=== PATIENT | female | born 1990 | race American Indian/Alaskan Native ===

== ENCOUNTER 2021-03-22 12:05 | Emergency (ER) | payer MEDICAID ==
[2021-03-22 14:40] VITALS: BP 121/66
--- NOTE | 2021-03-22 14:50 | Event Note ---
ED Screening Note Date of service: 03/22/21 Time: 14:48 ED Screening Note: 30-year-old female patient presents to the emergency department with complaints of dizziness for 1 month. Patient states she was evaluated by her primary care provider for this issue. She was diagnosed with anxiety and prescribed Venlafaxine. She has not taken the medication that was prescribed to her. Describes the dizziness as "feeling disoriented and off balance." Patient called her primary care provider this morning, who sent her to the emergency department. No recent fall, trauma, or injury. General: Awake, appropriately interactive, no acute distress. Neck: Supple. Full range of motion intact. Cardiovascular: Normal peripheral perfusion. Pulmonary: No respiratory distress. Patient is speaking normally without use of accessory muscles. Skin: No apparent rashes or lesions. Neurological: No facial asymmetry. Speech is clear. Follows commands. Patient is alert and oriented to person, place, time, and situation. Ambulatory without assistance. Musculoskeletal: Moves all four extremities spontaneously with normal range of motion. Psych: Cooperative. Appropriate mood and affect. EKG ordered. Serum test is pending. I have greeted and performed a focused rapid initial assessment of this patient. A comprehensive ED assessment and evaluation of the patient, analysis of all test results, and completion of the medical decision-making process will be conducted by additional ED providers. This initial assessment/diagnostic orders/clinical plan/treatment(s) is/are subject to change based on patients health status, clinical progression and re-assessment. Further treatment and wo rkup at subsequent clinical provider's discretion. Patient/guardian urged not to elope from the ED as their condition may be serious if not clinically assessed and managed.
--- NOTE | 2021-03-22 16:56 | Emergency Department Report ---
ED General Adult HPI - General Chief complaint: Dizziness Stated complaint: DIZZINESS Time Seen by Provider: 03/22/21 16:51 Source: patient Mode of arrival: Ambulatory Limitations: No Limitations - History of Present Illness Initial comments: 30-year-old female patient presents to the emergency department with complaints of dizziness for 1 month. Patient states she was evaluated by her primary care provider for this issue. She was diagnosed with anxiety and prescribed Venlafaxine. She has not taken the medication that was prescribed to her. Describes the dizziness as "feeling disoriented and off balance." Patient called her primary care provider this morning, who sent her to the emergency department. No recent fall, trauma, or injury. No current steroid or antibiotic use. Denies fever, chills, headache, vision changes, chest pain, shortness of breath, palpitations, syncope, seizure, paresthesias, numbness, weakness, vomiting, diarrhea, abnormal bleeding/bruising. Denies all other complaints at this time. - Related Data Allergies Allergy/AdvReac Type Severity Reaction Status Date / Time No Known Allergies Allergy Unverified 03/22/21 13:01 ED Review of Systems ROS: Stated complaint: DIZZINESS Other details as noted in HPI Other: GENERAL: Negative for fever, chills, weight change, anorexia, fatigue. ENT: Negative for ear pain, difficulty hearing, sore throat, nasal congestion, epistaxis. CARDIOVASCULAR: Negative for chest pain, palpitations, lower extremity swelling. PULMONARY: Negative for cough, dyspnea, wheezing, orthopnea, cyanosis. GASTROINTESTINAL: Negative for abdominal pain, nausea, vomiting, diarrhea, constipation. MUSCULOSKELETAL: Negative for joint pain, joint swelling, myalgias, back pain, neck pain. NEUROLOGICAL: Positive for dizziness. INTEGUMENTARY: Negative for erythema, rash, diaphoresis, laceration, ecchymosis. HEMATOLOGICAL: Negative for hemoptysis, hematemesis, hematochezia, hematuria. PSYCHIATRIC: Negative for hallucinations, suicidal ideation, homicidal ideation, anxiety, depression. ED Past Medical Hx - Past Medical History Previous Medical History?: No - Surgical History Past Surgical History?: Yes Additional Surgical History: 3 , TL, kidney stone removal ED Physical Exam - General Limitations: No Limitations - Other Other exam information: General: Awake and alert. No acute distress. Head: Atraumatic, normocephalic. Eyes: EOMI. Pupils are equal and round, reactive to light, no nystagmus. Normal sclera and conjunctiva. ENT: Oral mucosa is moist. Normal pharyngeal exam. Neck: Supple. No lymphadenopathy. Pulmonary: No respiratory distress. Clear to auscultation bilaterally. Cardiac: Regular rate and rhythm. Pulses are palpable and equal bilaterally. No lower extremity cyanosis or edema. Skin: Warm and dry. No rashes. Abdomen: Soft, non-tender, non-protuberant. No guarding, rigidity, or rebound. Bowel sounds are normal. No organomegaly or masses noted. Back: Normal alignment. No CVA tenderness. Extremities: Symmetrical. Full range of motion intact. Neurological: Alert and oriented to person/place/time/situation, appropriately interactive, no focal deficits. Ambulatory without assistance. Psych: Cooperative. Appropriate mood and affect. Speech is evenly metered. Thoughts are logically construed. ED Course Vital Signs 03/22/21 13:01 Temperature 98.7 F Pulse Rate 71 Respiratory 18 Rate Blood Pressure 121/66 O2 Sat by Pulse 100 Oximetry ED Medical Decision Making - EKG Data 03/22/21 16:56 EKG shows normal sinus rhythm with a ventricular rate of 71 bpm. Normal axis. Normal [place] interval. Normal QT interval. Good R wave progression. No ST segment changes. Over read by attending emergency physician, who agrees with this interpretation. - Medical Decision Making Differential diagnosis including but not limited to: cardiac arrhythmia, Brugada syndrome, prolonged QT interval, -related complication Patient presents to the emergency department with complaints of dizziness for approximately 1 month. She was evaluated by her primary care provider and prescribed medication but has not taken it yet. She is afebrile. Vital signs are stable. Neurological exam is nonfocal. EKG is unremarkable. test is negative. She is ambulatory without assistance and requesting to be discharged home promptly after diagnostic work-up. Symptoms are no different today than they have been over the last month. Patient is otherwise healthy without complaints. No clinical indication for further diagnostic work-up on an emergent basis per current [facility] clinical guidelines. Patient will be discharged home to follow-up with her primary care provider. Emphasized importance of adhering to the medication regimen her primary care provider previously prescribed. Patient expressed understanding and is agreeable to plan of care. Strict return precautions provided. Repeat exam is unremarkable and benign. History, exam, diagnostic testing, and current condition do not suggest worrisome pathology to warrant further testing, continued ED treatment, admission, or surgical evaluation at this point. Given the low probability of a significant medical illness, it would be more likely to result in harm than benefit to perform further testing at this stage. Discussed findings, presumptive diagnosis, need for follow-up and specific signs/symptoms that should prompt immediate return to the emergency department. Instructions were explained in detail to the patient in addition to giving written discharge information. Patient expressed understanding and was given the opportunity to ask questions, all of which were satisfactorily answered prior to discharge home. Critical care attestation.: If time is entered above; I have spent that time in minutes in the direct care of this critically ill patient, excluding procedure time. ED Disposition Clinical Impression: Dizziness Disposition: DC-01 TO HOME OR SELFCARE Is pt being admited?: No Does the pt Need Aspirin: No Condition: Stable Instructions: Dizziness, [id number] Additional Instructions: Take medications as previously prescribed by your primary care provider. Rest. Drink plenty of fluids. Follow-up with your primary care provider this week. Call tomorrow to schedule an appointment. Return to the emergency department immediately for new or worsening symptoms. Specifically, return to the emergency department immediately for fever, headache, chest pain, difficulty breathing, loss of consciousness, vomiting, or any other concerns. Referrals: ORLANDO SIMON MD [Primary Care Provider] - 3-5 Days [facility] [Provider Group] - 3-5 Days Time of Disposition: 16:57
== END 2021-03-22 17:15 | disposition home or self-care (01) ==
LOC: ED 12:05
DX: R42 Dizziness and giddiness (principal); Z98.890 Other specified postprocedural states
CPT/HCPCS: 36415; 84703; 93005